=== PATIENT | female | born 1985 | race African-American/Black ===

== ENCOUNTER 2023-08-07 04:20 | Inpatient (IN) | payer OTHER ==
[2023-08-02 16:02] VITALS: BMI 27.8
[2023-08-07] MEDS ORDERED: ACETAMINOPHEN INJECTION 100 ML IVPB ONE (09:40)
[2023-08-07] MEDS ORDERED: ROPIVACAINE HCL 0.5% 30ML VIAL ONE (09:40)
[2023-08-07] MEDS ORDERED: BUPIVACAINE LIPOSOME/PF (EXPAREL) 266 MG/20 ML VIAL ONE (09:41)
[2023-08-07] MEDS ORDERED: FENTANYL CITRATE/PF 50 MCG/ML VIAL ONE ×4 (09:45→15:57)
[2023-08-07] MEDS ORDERED: ceFAZolin SODIUM 1 GM VIAL ONE (09:45)
[2023-08-07] MEDS ORDERED: DEXAMETHASONE SOD PHOSPHATE 4 MG/1 ML VIAL ONE (09:45)
[2023-08-07] MEDS ORDERED: ROCURONIUM BROMIDE 50 MG/5 ML SYRINGE ONE ×2 (09:45→11:50)
[2023-08-07] MEDS ORDERED: MIDAZOLAM HCL 2 MG/2 ML SINGLE DOSE VIAL ONE (09:45)
[2023-08-07] MEDS ORDERED: PROPOFOL 20 ML ONE (09:45)
[2023-08-07] MEDS ORDERED: LIDOCAINE HCL/PF 2% SDV 5ML VIAL ONE (09:45)
[2023-08-07] MEDS ORDERED: HYDROmorphone HCl 2 MG/ML VIAL ONE (09:46)
[2023-08-07] MEDS ORDERED: LACTATED RINGERS SOLUTION 1,000 ML IV SCH (10:15)
[2023-08-07] MEDS ORDERED: TRIAMCINOLONE ACET 40MG/1ML VIAL ONE (10:43)
[2023-08-07] MEDS ORDERED: CLINDAMYCIN PHOSPHATE 300 MG/2 ML VIAL ONE (10:50)
[2023-08-07] MEDS: CLINDAMYCIN 900 MG PREMIX BAG IVPB ONE (11:27)
[2023-08-07] MEDS ORDERED: SUGAMMADEX SODIUM 200 MG/2 ML VIAL ONE (13:23)
[2023-08-07] MEDS: TRIAMCINOLONE ACET 40MG/1ML VIAL IM ONE (14:13)
[2023-08-07] MEDS: DEXTROSE 5%-LACTATED RINGERS 1,000 ML IV SCH (16:40)
[2023-08-07] MEDS: ONDANSETRON 4 MG/2 ML VIAL IVPUSH PRN (16:41)
[2023-08-07] MEDS ORDERED: ONDANSETRON 4 MG/2 ML VIAL ONE (16:41)
[2023-08-07] MEDS: ONDANSETRON 4 MG/2 ML VIAL IVPUSH ONE (21:07)
[2023-08-07] MEDS: ACETAMINOPHEN 1000 MG/100 ML BAG IVPB PRN (23:43)
[2023-08-08 10:02] LABS: BASO % 0.1 % (0-2.0); EOS % 0.1 % (0-4.5); HEMATOCRIT 33.5 % (32.4-45.2); LYMPH % 15.9 % (8-40); MCH 30.8 pg (25.7-33.7); MCHC 32.9 g/dl (32.0-36.0); MEAN CELL VOLUME 93.6 fl (80-96); MEAN PLT VOLUME 9.4 fl (7.5-11.1); MONO % 7.4 % (3.8-10.2); NEUT % 76.5 % (42.8-82.8); PLATELET COUNT 235 10^3/uL (134-434); RBC 3.57 M/mm3 (3.60-5.2); RDW 13.7 % (11.6-15.6); WHITE BLOOD COUNT 11.4 K/mm3 (4.0-10.0)
[2023-08-08 10:07] LABS: POTASSIUM 3.9 mmol/L (3.5-5.1)
[2023-08-08 10:11] LABS: CALCIUM 8.3 mg/dL (8.5-10.1)
[2023-08-08 10:14] LABS: CREATININE 0.6 mg/dL (0.55-1.3)
[2023-08-08 10:15] LABS: BILIRUBIN,TOTAL 0.9 mg/dL (0.2-1)
[2023-08-08 10:16] LABS: TOT PROT 6.1 g/dl (6.4-8.2)
[2023-08-08] MEDS: oxyCODONE HCL 5 MG TABLET PO PRN (14:50)
[2023-08-08 15:41] VITALS: RESP 18
[2023-08-08] MEDS: IBUPROFEN 600 MG TABLET (FP) PO PRN (22:09)
[2023-08-09 05:27] VITALS: BP 94/62; PULSE 69; TEMP 97.2
== END 2023-08-09 13:07 | disposition home or self-care (01) | DRG 519 ==
LOC: J2C 04:20 → J8W 16:48
PROVIDERS: ADMIT Obstetrics & Gynecology Maternal & Fetal Medicine; ATTEND Obstetrics & Gynecology Maternal & Fetal Medicine
PROC: 0UB90ZZ Excision of Uterus, Open Approach (ICD-10-PCS; principal; 2023-08-07 10:30)
DX: D25.1 Intramural leiomyoma of uterus (principal); D25.2 Subserosal leiomyoma of uterus; R19.00 Intra-abdominal and pelvic swelling, mass and lump, unspecified site
CPT/HCPCS: 36415; 80053; 81025; 85025; 86850; 86900; 86901; 88304-TC; 88305-TC; 94760; J0131